=== PATIENT | female | born 1985 | race African-American/Black ===

== ENCOUNTER → 2017-01-17 | Outpatient (CLI) | payer MEDICAID ==
[~2017-01-17] MED LIST: BUPR75TA5 PO; DICL75TA2 PO; ESCI5TAB7 PO; GABA300C10 PO; HYDR50TA13 PO; INSU100V8 SQ; OMNIPAQUE 350 MG/ML, 100ML BOTTLE ONE; OXYC-302 PO; RANI-276 PO; SITA100T PO; TRAM-47 PO; WARF7.5T PO
== END | disposition home or self-care (01) ==
LOC: CFH 12:23
PROVIDERS: ATTEND Internal Medicine
DX: R10.84 Generalized abdominal pain (principal)
CPT/HCPCS: 74177; 82565; Q9967

== ENCOUNTER 2020-08-17 11:01 | Emergency (ER) | payer MEDICAID ==
[~2020-08-17] VITALS: Ht 160 cm; Wt 96.6 kg
[~2020-08-17 11:01] MED LIST changes: -DICL75TA2 PO; +DICL75TA3 PO; -HYDR50TA13 PO; +HYDR50TA99 PO; -OMNIPAQUE 350 MG/ML, 100ML BOTTLE ONE; -OXYC-302 PO; +OXYC1TAB14 PO; -RANI-276 PO; +RANI-460 PO
--- NOTE | 2020-08-17 11:23 | NUR ---
PT C/O OF HIGH BP WITH A HIGH DIASTOLIC NUMBER. WORRIED ABOUT BP SPIKE AND STATES HIGH HR WITH PALPITATIONS DENIES SOB, CP, HEADACHE, N/V STATES BLOOD GLUCOSE HAD BEEN HIGH, URINATING A LOT, AND FEELING THIRSTY.
[2020-08-17] MEDS ORDERED: SODIUM CHLORIDE FLUSH 10ML SYR IVF ONE (12:00)
[2020-08-17] MEDS ORDERED: SODIUM CHLORIDE 0.9% 1,000ML IVBOLUS ONE (12:00)
[2020-08-17 12:07] LABS: BASOPHILS % (AUTO) 1 % (0-1); EOSINOPHILS % (AUTO) 2 % (1-7); LYMPHOCYTES % (AUTO) 24 % (22-44); MEAN CORPUSCULAR HEMOGLOBIN 21.9 pg (27.0-34.8); MEAN CORPUSCULAR HGB CONC 31.2 g/dL (32.4-35.8); MEAN PLATELET VOLUME 9.1 fL (7.4-10.4); MONOCYTES % (AUTO) 6 % (2-9); NEUTROPHILS % (AUTO) 68 % (42-75); PLATELET COUNT 306 x10^3/uL (130-400); RED BLOOD COUNT 5.39 x10^6/uL (3.82-5.3); RED CELL DISTRIBUTION WIDTH 18.6 % (9.6-15.2)
[2020-08-17 12:08] LABS: MD NO
[2020-08-17 12:19] LABS: ALBUMIN 3.5 g/dL (3.4-5.0); ANION GAP 6 mmol/L (5-15); CALCIUM 8.9 mg/dL (8.5-10.1); CHLORIDE 104 mmol/L (98-107)
[2020-08-17 12:25] LABS: ACETONE, SERUM Negative (Negative)
[2020-08-17 12:27] LABS: ALANINE AMINOTRANSFERASE 79 U/L (12-78); ALKALINE PHOSPHATASE 140 U/L (45-117); BILIRUBIN,TOTAL 0.2 mg/dL (0.2-1.0); CREATININE 0.95 mg/dL (0.55-1.02); TOTAL PROTEIN 7.8 g/dL (6.4-8.2); TROPONIN I < 0.015 ng/mL (0.000-0.045)
--- NOTE | 2020-08-17 12:30 | NUR ---
PT IN BED RESTING. ATTACHED TO MONITORS. VSS. CALL LIGHT WITHIN REACH. FLUIDS RUNNING. PT IN NAD. OBATINED UA SAMPLE.
[2020-08-17 12:54] LABS: MICROSCOPIC INDICATED
[2020-08-17 14:58] VITALS: BP 141/88
== END 2020-08-17 15:06 | disposition home or self-care (01) ==
LOC: ED 15:00
DX: R00.2 Palpitations (principal); R00.0 Tachycardia, unspecified; E11.65 Type 2 diabetes mellitus with hyperglycemia; I10 Essential (primary) hypertension; E78.5 Hyperlipidemia, unspecified; Z90.49 Acquired absence of other specified parts of digestive tract; Z88.2 Allergy status to sulfonamides; Z88.5 Allergy status to narcotic agent; Z88.8 Allergy status to other drugs, medicaments and biological substances
CPT/HCPCS: 36415; 71045; 80053; 81001; 82010; 82962; 84443; 84484; 84703; 85025; 93005; 96360; 99285; J7030